=== PATIENT | female | born 1950 | race Caucasian/White ===

== ENCOUNTER 2017-01-17 10:48 | Inpatient (IN) | payer OTHER ==
[2017-01-17 12:05] LABS: HEMOGLOBIN 13.8 gm/dl (12.3-15.3); RED BLOOD COUNT 4.73 M/UL (4.00-5.10); WHITE BLOOD COUNT 12.8 K/UL (4.5-11.0)
[2017-01-17] MEDS ORDERED: METOCLOPRAMIDE H5 MG PO (16:23)
[2017-01-17] MEDS ORDERED: LIPITOR TAB 2020 MG PO (16:24)
[2017-01-17] MEDS ORDERED: VENTOLIN/PROVE0.5 ML INH ×2 (16:25→16:48)
[2017-01-17] MEDS ORDERED: VISTARIL 50 MG50 MG PO (16:27)
[2017-01-17] MEDS ORDERED: GLUCOPHAGE1000 MG PO (16:28)
[2017-01-17] MEDS ORDERED: FENOFIBRATE200 MG PO (16:29)
[2017-01-17] MEDS ORDERED: OMEPRAZOLE40 MG PO (16:29)
[2017-01-17] MEDS ORDERED: FLEXERIL 10 MG10 MG PO (16:30)
[2017-01-17] MEDS ORDERED: NORVASC 5 MG TAB5 MG PO (16:31)
[2017-01-17] MEDS ORDERED: REQUIP0.5 MG PO (16:31)
[2017-01-17] MEDS ORDERED: ALL DAY ALLERGY10 M3 PO (16:33)
[2017-01-17] MEDS ORDERED: ZESTRIL 40 MG T40 MG PO (16:34)
[2017-01-17] MEDS ORDERED: FLOVENT DISKUS50 MCG INH (16:35)
[2017-01-17] MEDS ORDERED: LOSARTAN POTAS100 MG PO (16:35)
[2017-01-17] MEDS ORDERED: FISH OIL 1,0001 EACH PO (16:36)
[2017-01-17] MEDS ORDERED: SYNTHROID75 MCG PO (16:36)
[2017-01-17] MEDS ORDERED: CLEARLAX510 GM PO (16:37)
[2017-01-17] MEDS ORDERED: NEURONTIN 400400 MG PO (16:38)
[2017-01-17] MEDS ORDERED: FREESTYLE LITE1 EAC2 MC (16:38)
[2017-01-17] MEDS ORDERED: ZOFRAN ODT 4 MG4 MG PO (16:39)
[2017-01-17] MEDS ORDERED: ALPRAZOLAM0.5 MG PO (16:41)
[2017-01-17] MEDS ORDERED: HYDROCODON-ACE1 EAC6 PO (16:41)
[2017-01-17] MEDS ORDERED: ANTIVERT 25MG T25 MG PO (16:42)
[2017-01-17] MEDS ORDERED: VITAMIN D250000 UNIT PO (16:42)
[2017-01-17] MEDS ORDERED: GAS RELIEF 8080 MG PO (16:43)
[2017-01-17 17:13] LABS: HEMOGLOBIN 14.6 gm/dl (12.3-15.3); RED BLOOD COUNT 4.98 M/UL (4.00-5.10)
[2017-01-17 17:25] LABS: WHITE BLOOD COUNT 30.7 K/UL (4.5-11.0)
[2017-01-18 05:13] LABS: HEMOGLOBIN 12.8 gm/dl (12.3-15.3)
[2017-01-18 05:14] LABS: RED BLOOD COUNT 4.39 M/UL (4.00-5.10); WHITE BLOOD COUNT 17.5 K/UL (4.5-11.0)
[2017-01-19 04:40] LABS: HEMOGLOBIN 11.2 gm/dl (12.3-15.3); WHITE BLOOD COUNT 13.5 K/UL (4.5-11.0)
[2017-01-19 05:09] LABS: RED BLOOD COUNT 3.9 M/UL (4.00-5.10)
== END 2017-01-20 13:30 | disposition expired | DRG 208 ==
LOC: ER1 10:48 → ZEROF 15:30 → CCU 15:30
PROVIDERS: Family Medicine; Internal Medicine Infectious Disease; Internal Medicine Nephrology; ADMIT Internal Medicine
PROC: 5A1945Z Respiratory Ventilation, 24-96 Consecutive Hours (ICD-10-PCS; principal; 2017-01-17)
PROC: 0BH17EZ Insertion of Endotracheal Airway into Trachea, Via Natural or Artificial Opening (ICD-10-PCS; 2017-01-17)
DX: J96.01 Acute respiratory failure with hypoxia (principal); J81.0 Acute pulmonary edema; I63.9 Cerebral infarction, unspecified; N17.0 Acute kidney failure with tubular necrosis; G93.6 Cerebral edema; G93.1 Anoxic brain damage, not elsewhere classified; E87.2 Acidosis; E46 Unspecified protein-calorie malnutrition; R57.0 Cardiogenic shock; Z51.5 Encounter for palliative care; Z66 Do not resuscitate; I12.9 Hypertensive chronic kidney disease with stage 1 through stage 4 chronic kidney disease, or unspecified chronic kidney disease; N18.3 Chronic kidney disease, stage 3 (moderate); J44.9 Chronic obstructive pulmonary disease, unspecified; F17.210 Nicotine dependence, cigarettes, uncomplicated; E11.65 Type 2 diabetes mellitus with hyperglycemia; R19.7 Diarrhea, unspecified; R50.9 Fever, unspecified; E78.5 Hyperlipidemia, unspecified; E87.6 Hypokalemia; G89.29 Other chronic pain; M54.9 Dorsalgia, unspecified; F41.9 Anxiety disorder, unspecified; E03.9 Hypothyroidism, unspecified; E66.9 Obesity, unspecified; Z68.32 Body mass index [BMI] 32.0-32.9, adult; I25.2 Old myocardial infarction; Z88.5 Allergy status to narcotic agent; Z88.1 Allergy status to other antibiotic agents; Z88.0 Allergy status to penicillin; Z79.891 Long term (current) use of opiate analgesic; Z79.51 Long term (current) use of inhaled steroids; Z79.899 Other long term (current) drug therapy
CPT/HCPCS: ECHO; 36415; 36600; 51702; 70450; 71010; 80048; 80053; 80202; 80307; 81001; 82009; 82533; 82550; 82553; 82803; 82962; 83036; 83605; 83735; 83874; 83880; 84100; 84439; 84443; 84484; 85025; 85379; 85610; 85730; 86140; 87040; 93005; 93306; 93970; 94002; 94003; 94640; 94664; 95824; 96374; 96375; 99285; A4628; C9113; J1650; J1815; J1956; J2060; J3370; J3480; J7030; J7050; J7070